=== PATIENT | male | born 1960 | race Caucasian/White ===

== ENCOUNTER 2020-01-08 15:15 | Emergency (ER) | payer OTHER ==
[2020-01-08 15:37] VITALS: BMI 29.2
--- NOTE | 2020-01-08 15:39 | PDOC ---
Rapid Medical Evaluation Time Seen by Provider: 01/08/20 15:36 Medical Evaluation: Allergies Allergy/AdvReac Type Severity Reaction Status Date / Time No Known Allergies Allergy Verified 01/08/20 15:33 01/08/20 15:36 Pt presents for throat pain and difficulty swallowing. States this has been going on for 4-5 months. States that he recently finished a course of abx for a throat infection. Exam: throat with mild erythema, afebrile Orders: strep test Pt to proceed to the ER for further evaluation Discharge Disposition - Diagnosis Sore throat - Referrals - Patient Instructions - Post Discharge Activity
[2020-01-08] MEDS ORDERED: ACETAMINOPHEN 500 MG TABLET (FP) PO ONE (16:21)
[2020-01-08 16:52] LABS: BASO % 1.3 % (0-2.0); EOS % 2.2 % (0-4.5); HEMATOCRIT 42.7 % (35.4-49); HEMOGLOBIN 14.6 GM/dL (11.7-16.9); LYMPH % 38.4 % (8-40); MCH 33.8 pg (25.7-33.7); MCHC 34.2 g/dl (32.0-35.9); MEAN CELL VOLUME 98.9 fl (80-96); MEAN PLT VOLUME 9.7 fl (7.5-11.1); MONO % 9.2 % (3.8-10.2); NEUT % 48.9 % (42.8-82.8); PLATELET COUNT 208 K/MM3 (134-434); RBC 4.32 M/mm3 (4.00-5.60); RDW 13.1 % (11.9-15.9); WHITE BLOOD COUNT 5.3 K/mm3 (4.0-10.0)
[2020-01-08] MEDS ORDERED: ACETAMINOPHEN 500 MG TABLET (FP) ONE (17:00)
[2020-01-08 17:24] LABS: ALBUMIN 3.8 g/dl (3.4-5.0); BILIRUBIN,TOTAL 0.3 mg/dL (0.2-1); BLOOD UREA NITROGEN 11.9 mg/dL (7-18); CALCIUM 8.9 mg/dL (8.5-10.1); CREATININE 0.8 mg/dL (0.55-1.3); POTASSIUM 4.2 mmol/L (3.5-5.1); TOT PROT 8.2 g/dl (6.4-8.2)
[2020-01-08] MEDS ORDERED: SODIUM CHLORIDE 0.9% 500 ML INFUS.BAG IV ONE (19:31)
[2020-01-08] MEDS ORDERED: METOCLOPRAMIDE HCL INJECTION 10 MG/2 ML VIAL IVPUSH ONE (19:31)
[2020-01-08] MEDS ORDERED: KETOROLAC TROMETHAMINE 30 MG/1 ML VIAL IVPUSH ONE (19:32)
[2020-01-08] MEDS ORDERED: METOCLOPRAMIDE HCL INJECTION 10 MG/2 ML VIAL ONE (20:08)
[2020-01-08] MEDS ORDERED: KETOROLAC TROMETHAMINE 30 MG/1 ML VIAL ONE (20:09)
--- NOTE | 2020-01-08 21:11 | PDOC ---
History of Present Illness - General Chief Complaint: Cold Symptoms Stated Complaint: HEADACHE/SORE THROAT Time Seen by Provider: 01/08/20 15:36 - History of Present Illness Initial Comments: 01/08/20 21:09 59-year-old male presents for evaluation of headache and neck pain x1 week. He does have the symptoms he describes as the room spinning he also has intermittent sore throat and the headache has been waxing and waning without relief of [id number] meds over the last week no headaches like this in the past. Past History - Medical History Allergies/Adverse Reactions: Allergies Allergy/AdvReac Type Severity Reaction Status Date / Time No Known Allergies Allergy Verified 01/08/20 15:33 Home Medications: Ambulatory Orders Oxycodone HCl/Acetaminophen [Percocet 5-325 mg Tablet] 1 - 2 tab PO Q6H #20 tab 09/20/14 Fluticasone Prop 0.05% Nasal [Flonase -] 1 spray NS BID #7 bottle 04/02/15 Loratadine [Claritin -] 10 mg PO DAILY #10 tablet 04/02/15 Sodium Chloride Nasal [place] [[place] Nasal [place] -] 2 spray NS BID PRN #7 bottle 04/02/15 Sumatriptan Succinate [Imitrex -] 50 mg PO DAILY PRN #9 tablet 04/02/15 Meclizine HCl [Antivert -] 12.5 mg PO TID #21 tablet 01/08/20 COPD: No - Surgical History Abdominal Surgery: Yes (HERNIA) - Immunization History Immunization Up to Date: Yes - Psycho-Social/Smoking History Smoking History: Former smoker Have you smoked in the past 12 months: Yes Number of Cigarettes Smoked Daily: 2 Information on smoking cessation initiated: No 'Breaking Loose' booklet given: 04/01/15 - Substance Abuse Hx (Audit-C & DAST Scrn) How often the patient has a drink containing alcohol: Never Score: In Men: 4 or > Positive; In Women: 3 or > Positive: 0 Screen Result (Pos requires Nsg. Audit-10AR): Negative In the last yr the pt used illegal drug/Rx for NonMed reason: No Score: Yes response is considered Positive: 0 Screen Result (Positive result requires Nsg. DAST-10): Negative Review of Systems - Review of Systems Constitutional: No: Fever Neurological: Yes: Headache, Unsteady Gait, Dizziness *Physical Exam - Vital Signs Last Vital Signs Temp Pulse Resp BP Pulse Ox 98.9 F 88 19 132/83 98 01/08/20 15:33 01/08/20 15:33 01/08/20 15:33 01/08/20 15:33 01/08/20 15:33 - Physical Exam 01/08/20 21:10 GENERAL: The patient is awake, alert, and fully oriented, in no acute distress. HEAD: Normal with no signs of trauma. EYES: sclera anicteric, conjunctiva clear. ENT: Ears normal tympanic membranes normal oropharynx clear uvula midline NECK: Normal range of motion LUNGS: Breath sounds equal, clear to auscultation bilaterally. No wheezes, and no crackles. HEART: S1 and S2 without murmur, rub or gallop. ABDOMEN: Soft, nontender, normoactive bowel sounds. No guarding, no rebound. No masses. EXTREMITIES: Normal range of motion, no edema. No clubbing or cyanosis. No cords, erythema, or tenderness. NEUROLOGICAL: Cranial nerves II through XII grossly intact.At times patient walks normally and then has unsteady gait. PSYCH: Normal mood, normal affect. SKIN: Warm, Dry, normal turgor, no rashes or lesions noted. ED Treatment Course - LABORATORY CBC & Chemistry Diagram: 01/08/20 16:40 01/08/20 16:40 - ADDITIONAL ORDERS Additional order review: Laboratory Results 01/08/20 16:40 Sodium 139 Potassium 4.2 Chloride 108 H Carbon Dioxide 20 L Anion Gap 11 BUN 11.9 Creatinine 0.8 Est GFR (CKD-EPI)AfAm 114.93 Est GFR (CKD-EPI)NonAf 99.16 Random Glucose 89 Calcium 8.9 Total Bilirubin 0.3 AST 62 H ALT 99 H Alkaline Phosphatase 78 Total Protein 8.2 Albumin 3.8 01/08/20 16:40 RBC 4.32 MCV 98.9 H MCHC 34.2 RDW 13.1 MPV 9.7 Neutrophils % 48.9 D Lymphocytes % 38.4 D Monocytes % 9.2 Eosinophils % 2.2 D Basophils % 1.3 D - RADIOLOGY Radiology Studies Ordered: Category Date Time Status HEAD CT WITHOUT CONTRAST [CT] Stat CT Scan 01/08/20 16:20 Completed NECK CTA [CT] Stat CT Scan 01/08/20 16:20 Taken - Medications Given in the ED: ED Medications Discontinued Medications Generic Name Dose Route Start Last Admin Trade Name Ash PRN Reason Stop Dose Admin Acetaminophen 1,000 mg 01/08/20 16:21 01/08/20 17:00 Tylenol - PO 01/08/20 16:22 1,000 mg ONCE ONE Administration Diphenhydramine HCl 25 mg 01/08/20 19:31 01/08/20 20:14 Benadryl Injection - IVPB 01/08/20 19:32 25 mg ONCE ONE Administration Ketorolac Tromethamine 30 mg 01/08/20 19:32 01/08/20 20:15 Toradol Injection - IVPUSH 01/08/20 19:33 30 mg ONCE ONE Administration Metoclopramide HCl 10 mg 01/08/20 19:31 01/08/20 20:15 Reglan Injection - IVPUSH 01/08/20 19:32 10 mg ONCE ONE Administration Sodium Chloride 1,000 ml 01/08/20 19:31 01/08/20 20:14 Normal Saline - IV 01/08/20 19:32 1,000 ml ONCE ONE Administration Medical Decision Making - Medical Decision Making 01/08/20 21:10 CT scans of the neck and head were negative. We will have patient follow-up with neurology symptoms relieved after IV medications. His most likely vertiginous symptoms will treat with meclizine and neurologic follow-up. I have reviewed the pathophysiology with the patient. They are in agreement with the treatment plan all questions were answered to their satisfaction. Understanding for follow-up without fail was also conveyed to the patient. Again they are in agreement. Discharge - Discharge Information Problems reviewed: Yes Clinical Impression/Diagnosis: Sore throat, Headache Condition: Stable Disposition: HOME - Admission No - Follow up/Referral Referrals: Gaston Kline MD [Primary Care Provider] - Gus Barreto MD [Staff Physician] - - Patient Discharge Instructions Additional Instructions: Return to the emergency room for further issues and without fail follow-up with neurology in 1 to 2 days for further evaluation and treatment options. Please take the meclizine as directed for dizziness. - Post Discharge Activity
[2020-01-08 21:43] VITALS: BP 122/76; PULSE 89; TEMP 98.6
== END 2020-01-08 21:44 | disposition home or self-care (01) ==
LOC: JERFT 15:15
PROC: 3E0333Z Introduction of Anti-inflammatory into Peripheral Vein, Percutaneous Approach (ICD-10-PCS; principal; 2020-01-08)
PROC: 3E033GC Introduction of Other Therapeutic Substance into Peripheral Vein, Percutaneous Approach (ICD-10-PCS; 2020-01-08)
DX: R51 Headache (principal); J02.9 Acute pharyngitis, unspecified
CPT/HCPCS: 36415; 70450-TC; 70498-TC; 80053; 85025; 87070; 87880; 99285-25; Q9967